=== PATIENT | male | born 1990 | race Caucasian/White ===

== ENCOUNTER 2021-12-02 08:50 | Outpatient (CLI) | payer BC | END 2021-12-02 08:51 | disposition home or self-care (01) | LOC: LABBT 08:50 | PROVIDERS: ATTEND Student in an Organized Health Care Education/Training Program | DX: L03.90 Cellulitis, unspecified (principal); J33.9 Nasal polyp, unspecified; J32.9 Chronic sinusitis, unspecified; J34.2 Deviated nasal septum; J34.3 Hypertrophy of nasal turbinates; R09.81 Nasal congestion; J34.89 Other specified disorders of nose and nasal sinuses; L72.3 Sebaceous cyst; Z20.822 Contact with and (suspected) exposure to COVID-19 | CPT/HCPCS: 87811 ==

== ENCOUNTER 2021-12-07 08:18 | Day surgery (SDC) | payer BC ==
[2021-12-03 11:02] VITALS: BMI 30.4
[~2021-12-07 08:18] MED LIST: fentaNYL Citrate/PF 100 MCG/2 ML SYRINGE ONE
[2021-12-07] MEDS ORDERED: Oxymetazoline HCl 0.05% (30 ML BOT) ONE ×2 (09:06→09:41)
[2021-12-07] MEDS ORDERED: Midazolam HCl 2 mg/2 ml Vial ONE (09:06)
[2021-12-07] MEDS ORDERED: Lidocaine 1% (PF) 30 ML VIAL ONE (09:41)
[2021-12-07] MEDS ORDERED: Bacitracin Zinc Ointment 30 gm TUBE ONE (09:41)
[2021-12-07] MEDS ORDERED: EPINEPHrine 1 MG/ML AMP ONE (09:41)
[2021-12-07] MEDS ORDERED: Sodium Chloride 0.9% 100 ML ONE (09:49)
[2021-12-07] MEDS ORDERED: cefOXitin 2 GM VIAL ONE (09:49)
[2021-12-07] MEDS ORDERED: Propofol 1,000 MG/100 ML VIAL IV ONE (09:51)
[2021-12-07] MEDS ORDERED: Ondansetron PF 4 MG/2 ML Vial ONE (09:55)
[2021-12-07] MEDS ORDERED: Rocuronium Bromide 10 MG/ML (10ML VIAL) ONE (09:55)
[2021-12-07] MEDS ORDERED: NEOSTIGMINE 3 MG/3 ML SYR 3 MG/3 ML SYRINGE ONE (09:55)
[2021-12-07] MEDS ORDERED: Glycopyrrolate 0.2 MG/ML 5 ML SYRINGE ONE (09:55)
[2021-12-07] MEDS ORDERED: Dexamethasone 20 MG/5 ML VIAL ONE (09:55)
[2021-12-07] MEDS ORDERED: PROPOFOL 200 MG/20 ML VIAL ONE (09:55)
[2021-12-07] MEDS ORDERED: Triamcinolone 40 MG/ML VIAL ONE (12:10)
[2021-12-07] MEDS ORDERED: HYDROcodone/Acetaminophen 5/325 mg Tablet ONE (14:02)
== END 2021-12-07 14:29 | disposition home or self-care (01) ==
LOC: SDC 08:18
PROVIDERS: ATTEND Student in an Organized Health Care Education/Training Program
PROC: 09TL0ZZ Resection of Nasal Turbinate, Open Approach (ICD-10-PCS; principal; 2021-12-07)
PROC: 09QK0ZZ Repair Nasal Mucosa and Soft Tissue, Open Approach (ICD-10-PCS; principal; 2021-12-07)
PROC: 09BR8ZZ Excision of Left Maxillary Sinus, Via Natural or Artificial Opening Endoscopic (ICD-10-PCS; principal; 2021-12-07)
PROC: 09TV8ZZ Resection of Left Ethmoid Sinus, Via Natural or Artificial Opening Endoscopic (ICD-10-PCS; principal; 2021-12-07)
PROC: 09SM0ZZ Reposition Nasal Septum, Open Approach (ICD-10-PCS; principal; 2021-12-07)
PROC: 0KB30ZZ Excision of Left Neck Muscle, Open Approach (ICD-10-PCS; principal; 2021-12-07)
DX: J32.9 Chronic sinusitis, unspecified (principal); J34.2 Deviated nasal septum; J34.3 Hypertrophy of nasal turbinates; J34.89 Other specified disorders of nose and nasal sinuses; J33.9 Nasal polyp, unspecified; R22.1 Localized swelling, mass and lump, neck; L03.221 Cellulitis of neck; Z79.899 Other long term (current) drug therapy
CPT/HCPCS: 88304; C1726; C1889; J0171; J0694; J1100; J2001; J2250; J2405; J2704; J3301; J3490

== ENCOUNTER 2022-12-30 09:57 | Outpatient (CLI) | payer BC | END 2022-12-30 09:58 | disposition home or self-care (01) | LOC: ULT 09:57 | PROVIDERS: ATTEND Family Medicine | DX: R31.29 Other microscopic hematuria (principal); N28.89 Other specified disorders of kidney and ureter | CPT/HCPCS: 76770 ==